=== PATIENT | male | born 1995 | race Two or more races ===

== ENCOUNTER 2019-09-30 15:04 | Emergency (ER) | payer SELFPAY ==
[~2019-09-30] VITALS: Ht 167.6 cm; Wt 65.0 kg
[2019-09-30 15:10] VITALS: BP 179/89
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
== END 2019-09-30 17:10 | disposition left against medical advice (07) ==
LOC: ER 15:04
DX: S92.111A Displaced fracture of neck of right talus, initial encounter for closed fracture (principal); R60.0 Localized edema; X50.1XXA Overexertion from prolonged static or awkward postures, initial encounter; Y93.89 Activity, other specified; Y92.413 State road as the place of occurrence of the external cause; Y99.8 Other external cause status
CPT/HCPCS: 29515; 73590; 73610; 99284